=== PATIENT | female | born 2000 | race Caucasian/White ===

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

== ENCOUNTER → 2021-03-18 | Outpatient (CLI) | payer OTHER ==
[2021-03-18 14:48] LABS: BASOPHILS ABSOLUTE AUTO 0.08 K/mm3 (0.00-0.23); BASOPHILS PERCENT AUTO 1 % (0-2); EOSINOPHILS ABSOLUTE AUTO 0.19 K/mm3 (0.00-0.68); EOSINOPHILS PERCENT AUTO 3 % (0-6); Hematocrit 40.1 % (33.0-51.0); Hemoglobin 13.5 g/dL (11.5-16.0); IMMATURE GRAN ABSOLUTE AUTO 0.01 K/mm3 (0.00-0.10); IMMATURE GRAN PERCENT AUTO 0 % (0-1); LYMPHOCYTES PERCENT AUTO 19 % (21-46); MONOCYTES PERCENT AUTO 6 % (4-13); Mean Corpuscular HGB 29.5 pg (26.0-34.0); Mean Corpuscular HGB Conc 33.7 g/dL (31.5-36.5); Mean Corpuscular Volume 88 fL (80-100); Mean Platelet Volume 9.8 fL (9.1-12.4); NEUTROPHILS ABSOLUTE AUTO 4.58 K/mm3 (1.96-9.15); NEUTROPHILS PERCENT AUTO 71 % (41-73); Platelet Count 341 K/mm3 (150-400); RDW Coefficient Variation 13.5 % (11.7-14.2); RDW Standard Deviation 42.8 fL (35.1-46.3); Red Blood Cell Count 4.57 M/mm3 (3.80-5.20); White Blood Cell Count 6.46 K/mm3 (4.00-11.30)
== END | disposition home or self-care (01) ==
LOC: LAB SHORT 14:30
PROVIDERS: Family Medicine
DX: N93.9 Abnormal uterine and vaginal bleeding, unspecified (principal)
CPT/HCPCS: 84443; 84702; 85025

== ENCOUNTER → 2021-12-20 | Outpatient (CLI) | payer OTHER ==
[2021-12-21 13:59] LABS: Candida species (DNA Probe) Negative (NEGATIVE); G. vaginalis (DNA Probe) Negative (NEGATIVE); T. vaginalis (DNA Probe) Negative (NEGATIVE)
[2021-12-22 04:06] LABS: CHLAMYDIA TRACHOMATIS, NAA Negative (Negative)
== END | disposition home or self-care (01) ==
LOC: LAB SHORT 14:35 → LAB 14:35
PROVIDERS: Obstetrics & Gynecology
DX: Z11.3 Encounter for screening for infections with a predominantly sexual mode of transmission (principal); N89.8 Other specified noninflammatory disorders of vagina
CPT/HCPCS: 87480; 87491; 87510; 87591; 87660

== ENCOUNTER → 2022-12-23 | Outpatient (CLI) | payer OTHER ==
[2022-12-25 01:07] LABS: CHLAMYDIA TRACHOMATIS, NAA Negative (Negative)
== END ==
LOC: LAB 16:10 → LAB SHORT 16:10
PROVIDERS: Obstetrics & Gynecology
DX: Z01.419 Encounter for gynecological examination (general) (routine) without abnormal findings (principal); Z11.3 Encounter for screening for infections with a predominantly sexual mode of transmission
CPT/HCPCS: 87491; 87591; G0145

== ENCOUNTER → 2024-04-14 | Outpatient (CLI) | payer OTHER ==
[~2024-04-14] MED LIST changes: +MECL25 PO
== END ==
LOC: LAB 18:13 → LAB SHORT 18:13
DX: O09.93 Supervision of high risk pregnancy, unspecified, third trimester (principal)
CPT/HCPCS: 87081; 87150

== ENCOUNTER 2024-05-07 11:48 | Inpatient (IN) | payer OTHER ==
[2024-05-07] VITALS (7 sets, daily range): BP systolic 115–130; BP diastolic 55–76
[~2024-05-07] VITALS: Ht 152.4 cm; Wt 70.9 kg
[2024-05-07] MEDS ORDERED: Tranexamic Acid 100 ML IV SCH (12:50)
[2024-05-07] MEDS ORDERED: Penicillin G Potassium 5,000,000 UNITS in NS 250 ML IV ONE (12:50)
[2024-05-07] MEDS ORDERED: OXYTOCIN/RINGER'S LACTATE 500 ML IV PRN (12:50)
[2024-05-07] MEDS ORDERED: Carboprost Tromethamine 250 MCG/ML 1ML Amp IM PRN (12:50)
[2024-05-07] MEDS ORDERED: Misoprostol 200 MCG Tab PR PRN (12:50)
[2024-05-07] MEDS ORDERED: Methylergonovine Maleate 0.2MG / ML 1ML Amp IM PRN (12:50)
[2024-05-07] MEDS ORDERED: Calcium Carbonate 500 MG Tab Chew PO SCH (12:50)
[2024-05-07] MEDS ORDERED: Ondansetron HCl 2 MG / ML 2ML Vial IV PRN (12:50)
[2024-05-07] MEDS ORDERED: Lactated Ringer's 1,000 ML IV PRN ×3 (12:50→19:15)
[2024-05-07] MEDS ORDERED: Acetaminophen 500 MG Tab PO PRN (12:50)
[2024-05-07] MEDS ORDERED: Misoprostol 200 MCG Tab BC PRN (12:50)
[2024-05-07] MEDS ORDERED: Oxytocin 10 Unit / ML Vial IM PRN (12:50)
[2024-05-07] MEDS ORDERED: ePHEDrine Sulfate 50 MG/ML 1ML Injection XX PRN (12:55)
[2024-05-07] MEDS ORDERED: Lactated Ringer's 1,000 ML IV SCH ×3 (12:55→17:10)
[2024-05-07] MEDS ORDERED: FentaNYL 2mcg/ml-Bup 0.1% Epd 250 ML EPI PRN (12:55)
[2024-05-07 13:00] LABS: BASOPHILS ABSOLUTE AUTO 0.06 K/mm3 (0.00-0.23); BASOPHILS PERCENT AUTO 1 % (0-2); EOSINOPHILS ABSOLUTE AUTO 0.06 K/mm3 (0.00-0.68); EOSINOPHILS PERCENT AUTO 1 % (0-6); Hematocrit 30.3 % (33.0-51.0); Hemoglobin 9.8 g/dL (11.5-16.0); IMMATURE GRAN ABSOLUTE AUTO 0.08 K/mm3 (0.00-0.10); IMMATURE GRAN PERCENT AUTO 1 % (0-1); LYMPHOCYTES ABSOLUTE AUTO 1.21 K/mm3 (0.84-5.20); LYMPHOCYTES PERCENT AUTO 13 % (21-46); MONOCYTES ABSOLUTE AUTO 0.58 K/mm3 (0.16-1.47); MONOCYTES PERCENT AUTO 6 % (4-13); Mean Corpuscular HGB 26.8 pg (26.0-34.0); Mean Corpuscular HGB Conc 32.3 g/dL (31.5-36.5); Mean Corpuscular Volume 83 fL (80-100); Mean Platelet Volume 11.9 fL (9.1-12.4); NEUTROPHILS ABSOLUTE AUTO 7.47 K/mm3 (1.96-9.15); NEUTROPHILS PERCENT AUTO 79 % (41-73); Platelet Count 246 K/mm3 (150-400); RDW Coefficient Variation 13.4 % (11.7-14.2); RDW Standard Deviation 40.7 fL (35.1-46.3); Red Blood Cell Count 3.66 M/mm3 (3.80-5.20); White Blood Cell Count 9.46 K/mm3 (4.00-11.30)
[2024-05-07] MEDS ORDERED: DRAMAMINE25 M2 PO (13:44)
[2024-05-07] MEDS ORDERED: ALBU90OI INH (13:45)
[2024-05-07] MEDS ORDERED: FentaNYL Citrate 50 MCG/ML 2 ML Injection IV PRN (13:50)
[2024-05-07] MEDS ORDERED: Penicillin G Potassium 2,500,000 UNITS in Dextrose 5% 100 ML IV SCH (17:00)
--- NOTE | 2024-05-07 17:00 | NUR ---
pit started per orders, per dr haas, pelvis adequate and efw 7.5 lbs. orders to start pitocin
[2024-05-07] MEDS ORDERED: OXYTOCIN/RINGER'S LACTATE 500 ML IV SCH (17:10)
[2024-05-08] VITALS (14 sets, daily range): BP systolic 109–132; BP diastolic 58–75
[2024-05-08] MEDS ORDERED: Ketorolac Tromethamine 30mg Vial IV PRN (03:00)
[2024-05-08] MEDS ORDERED: Lactated Ringer's 1,000 ML IV SCH (03:00)
[2024-05-08] MEDS ORDERED: Methylergonovine Maleate 0.2MG / ML 1ML Amp IM PRN (03:00)
[2024-05-08] MEDS ORDERED: Carboprost Tromethamine 250 MCG/ML 1ML Amp IM PRN (03:05)
[2024-05-08] MEDS ORDERED: Witch Hazel/Glycerin PADS TOP PRN (03:05)
[2024-05-08] MEDS ORDERED: FLU VACC TS2024-25(6MOS UP)/PF 45 MCG/0.5 ML SYRINGE IM ONE (03:05)
[2024-05-08] MEDS ORDERED: OXYTOCIN/RINGER'S LACTATE 500 ML IV SCH (03:05)
[2024-05-08] MEDS ORDERED: Ibuprofen 400 MG Tab PO PRN (03:05)
[2024-05-08] MEDS ORDERED: Docusate Sodium 100 MG Cap PO PRN (03:05)
[2024-05-08] MEDS ORDERED: Benzocaine Topical Anesthetic Spray 60GM TOP PRN (03:10)
[2024-05-08] MEDS ORDERED: Acetaminophen 500 MG Tab PO PRN (03:10)
[2024-05-08] MEDS ORDERED: Misoprostol 200 MCG Tab BC PRN (03:20)
[2024-05-08] MEDS ORDERED: Prenatal Vit/FE Fumarate/FA 1 Tab PO SCH (09:00)
[2024-05-08] MEDS ORDERED: OxyCODONE HCL 5 MG TAB PO PRN (09:20)
--- NOTE | 2024-05-08 11:01 | NUR ---
PHONE CALL TO DR COOK REGARDING PT STATUS AT 0915. UPDATED ON PAIN LEVEL OF 7-8/10. SEVERE VAGINAL EDEMA THAT IS SOFT WITH PALPATION, NO BRUISING NOTED. PER WEATHERSEAL TECHNICIAN RN, WHEN PT GOT UP TO SHOWER, SHE REPORTED FAINTING IN THE SHOWER. WHEN THIS RN AND SANTOS CAMPBELL ATTEMPTED TO GET PT UP TO VOID SHE WAS CLOSING HER EYES AND REPORTING SHE WAS DIZZY BEFORE STANDING HER UP COMPLETELY. PT BACK TO BED. PLACED TOWEL FOR PT TO VOID IF NEEDED DUE TO EDEMA, BED CAMPBELL NOT USED. ORDERS FOR ROXICODONE 5-10MG Q4H PRN.
--- NOTE | 2024-05-08 11:05 | NUR ---
PT CALLED RN TO BEDSIDE FOR LINEN CHANGE. SHE REPORTS THAT SHE GOT UP AND VOIDED ON HER OWN. PT WAS ENCOURAGED TO CALL BEFORE GETTING OUT OF BED BUT SHE STATES SHE FORGOT. SHE REPORTS SHE WAS "A LITTLE DIZZY BUT FEELS OK" LINENS CHANGED. NEW ICE DIAPER OFFERED. PT REPORTS THAT SHE WOULD LIKE TO USE THE WITCH [employer] PADS FOR NOW.
[2024-05-08] MEDS ORDERED: Calcium Carbonate 500 MG Tab Chew PO SCH (12:50)
[2024-05-08] MEDS ORDERED: Benzocaine Topical Anesthetic Spray 60GM TOP ONE (13:35)
[2024-05-08] MEDS ORDERED: Benzocaine/Benzethon Topical Anesthetic Spray 78GM TOP ONE (14:40)
[2024-05-08 18:05] LABS: BASOPHILS ABSOLUTE AUTO 0.07 K/mm3 (0.00-0.23); BASOPHILS PERCENT AUTO 1 % (0-2); EOSINOPHILS ABSOLUTE AUTO 0.05 K/mm3 (0.00-0.68); EOSINOPHILS PERCENT AUTO 1 % (0-6); Hematocrit 26.1 % (33.0-51.0); Hemoglobin 8.3 g/dL (11.5-16.0); IMMATURE GRAN ABSOLUTE AUTO 0.07 K/mm3 (0.00-0.10); IMMATURE GRAN PERCENT AUTO 1 % (0-1); LYMPHOCYTES ABSOLUTE AUTO 1.58 K/mm3 (0.84-5.20); LYMPHOCYTES PERCENT AUTO 14 % (21-46); MONOCYTES ABSOLUTE AUTO 0.75 K/mm3 (0.16-1.47); MONOCYTES PERCENT AUTO 7 % (4-13); Mean Corpuscular HGB 26.5 pg (26.0-34.0); Mean Corpuscular HGB Conc 31.8 g/dL (31.5-36.5); Mean Corpuscular Volume 83 fL (80-100); Mean Platelet Volume 11.6 fL (9.1-12.4); NEUTROPHILS ABSOLUTE AUTO 8.45 K/mm3 (1.96-9.15); NEUTROPHILS PERCENT AUTO 77 % (41-73); Platelet Count 225 K/mm3 (150-400); RDW Coefficient Variation 13.6 % (11.7-14.2); Red Blood Cell Count 3.13 M/mm3 (3.80-5.20); White Blood Cell Count 10.97 K/mm3 (4.00-11.30)
[2024-05-08] MEDS ORDERED: Misoprostol 200 MCG Tab PO ONE (18:28)
[2024-05-08] MEDS ORDERED: Sod Ferric Gluc Complx/Sucrose 125 MG in NS 100 ML IV SCH (18:30)
[2024-05-09 03:55] VITALS: BP 116/63
[2024-05-09 07:51] VITALS: BP 111/64
[2024-05-09 10:35] VITALS: BP 123/56
--- NOTE | 2024-05-09 12:10 | NUR ---
at 1210 pt ready to dc home, ambulating out with RN. helped push cart, encoruaged to call if has questions or we would see her at her [facility] appt. pt showered before leaving.
== END 2024-05-09 12:07 | disposition home or self-care (01) | DRG 807 ==
LOC: OBS 11:48 → BC 11:48 → OBS 12:14 → BC 12:15
PROVIDERS: ADMIT Obstetrics & Gynecology
PROC: 10E0XZZ Delivery of Products of Conception, External Approach (ICD-10-PCS; principal; 2024-05-07)
PROC: 0KQM0ZZ Repair Perineum Muscle, Open Approach (ICD-10-PCS; 2024-05-07)
DX: O42.02 Full-term premature rupture of membranes, onset of labor within 24 hours of rupture (principal); Z37.0 Single live birth; Z3A.39 39 weeks gestation of pregnancy; O99.344 Other mental disorders complicating childbirth; F41.8 Other specified anxiety disorders; O99.824 Streptococcus B carrier state complicating childbirth; O99.02 Anemia complicating childbirth; Z90.89 Acquired absence of other organs; Z79.899 Other long term (current) drug therapy; O70.1 Second degree perineal laceration during delivery
CPT/HCPCS: 36415; 59025; 85025; 86850; 86900; 86901; 99214; A9270; J1885; J2540; J2590; J2916; J3010; J7050; J7120